=== PATIENT | female | born 2005 | race Caucasian/White ===

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

== ENCOUNTER 2025-01-23 14:46 | Emergency (ER) | payer OTHER, SELFPAY ==
[2025-01-23 15:49] VITALS: BP 111/65; PULSE 86; RESP 16; TEMP 36.5; O2SAT 99; BMI 17.9
--- NOTE | 2025-01-23 15:49 | ED.GENADULT ---
HPI - General Adult General Chief complaint: Urogenital-Female Stated complaint: possible UTI, bleeding/spotting Time Seen by Provider: 01/23/25 18:01 Source: patient Mode of arrival: ambulatory Limitations: no limitations History of Present Illness ED Provider: Светлана Box NP HPI narrative: Patient is a 19-year-old female who presents emergency department for evaluation of dysuria, hematuria, abnormal vaginal discharge as well as vaginal spotting since Nexplanon insertion 2 months ago. Endorsing a history of BV with similar symptoms. Denies concern for sexually transmitted infections. No fevers or chills. No nausea/vomiting or abdominal pain Related Data Previous Rx's ?Medication ?Instructions ?Recorded cefuroxime axetil 250 mg tablet 250 mg PO BID 7 days #14 tabs 11/27/24 metronidazole 500 mg tablet 500 mg PO BID 7 days #14 tabs 11/27/24 phenazopyridine 200 mg tablet 200 mg PO TID PRN pain 6 doses #6 12/10/24 (Pyridium) tabs sulfamethoxazole 800 1 tab PO Q12H #14 tabs 12/10/24 mg-trimethoprim 160 mg tablet (Bactrim DS) cefuroxime axetil 250 mg tablet 250 mg PO BID #14 tabs 01/23/25 Allergies Allergy/AdvReac Type Severity Reaction Status Date / Time No Known Allergies Allergy Verified 01/23/25 15:51 Review of Systems Review of Systems: Yes all other systems are reviewed and are negative [facility] Past Medical History Attestation statement: The following information was validated with the patient. Source: old records reviewed Social History Social History Advance Directives: No Advance Directives Information Provided: No Physical Exam ED Vital Signs: Vital Signs - 24 hr 01/23/25 15:49 Temperature 97.7 F Pulse Rate 86 Respiratory Rate 16 Blood Pressure 111/65 Pulse Oximetry 99 Oxygen Delivery Method Room Air BMI result Body Mass Index 17.9 Appearance: Alert.?Oriented to person, place and time. No acute distress.?Normal affect. CVS: Heart sounds normal. Normal heart rate and rhythm.? Pulses normal.?? Respiratory: No respiratory distress.? Lung sounds clear to auscultation bilaterally?? Abdomen: Soft and non-tender. Normoactive bowel sounds. Skin: Skin warm and dry.? Normal skin color.? Extremities: No lower extremity edema.? Neuro: Moves all extremities spontaneously. Sensation intact bilaterally. Ambulates with normal steady gait. Course Course Course Narrative: This is a rapid medical exam performed by Myles Borjas NP: Additional HPI, ROS, PE not included below will be deferred to primary provider. Patient is a 19-year-old female with Nexplanon implant placed 3-4 mos ago presenting with dysuria, hematuria, foul smelling vaginal discharge, vaginal bleeding/spotting x 2 mos. Reports hx of BV, feels some symptoms are similar. Plan: UA, labs Reevaluation(s) Reevaluation #1: Patient left the ED without completing treatment, nursing advised patient had walked out of the department. Sent prescription for cefuroxime to pharmacy. Attempted to reach by phone, went immediately to voicemail, voicemail not set up to leave message unfortunately. Medical Decision Making Medical Decision Making [facility] Narrative: Patient is a 19-year-old female who presents emergency department for evaluation of dysuria hematuria vaginal spotting as per HPI. Without signs of systemic toxicity afebrile no tachycardia. Benign abdominal examination. Obtaining serum labs in addition to urinalysis, hCG, BV panel/STI screen. Differential Diagnosis Differential Diagnoses: The differential diagnosis associated with the presentation includes (UTI, , pressure vaginosis, ultimately candidiasis, STI, nephrolithiasis) Lab Data [facility] Lab Attestation statement: I reviewed the patient's lab results. CBC is without leukocytosis anemia or thrombocytopenia. No significant electrolyte derangement. No VIOLETA. LFTs unremarkable. HCG negative. Urinalysis positive for UTI 01/23/25 16:35 01/23/25 16:35 Labs: Lab Results 01/23/25 Range/Units 16:35 WBC 5.3 (4.8-10.8) X10*3/uL RBC 4.66 (4.20-5.50) X10*6/uL Hgb 12.2 (12.0-16.0) g/dl Hct 38.6 (37.0-47.0) % MCV 82.8 (80.0-98.0) fL MCH 26.2 L (27.0-33.0) pg MCHC 31.6 (31.0-35.0) g/dl RDW 12.5 (11.0-16.0) % Plt Count 250 (160-400) X10*3/uL MPV 11.5 (9.4-12.3) fL Immature Gran % (Auto) 0.4 (0.0-0.4) % Neut % (Auto) 62.1 (45-73) % Lymph % (Auto) 27.8 (20-40) % [place] % (Auto) 7.8 (2-11) % Eos % (Auto) 1.1 (0-4) % Baso % (Auto) 0.8 (0-2) % Lymph # (Auto) 1.5 (1.2-4.9) X10*3/uL [place] # (Auto) 0.4 (0.1-1.2) X10*3/uL Eos # (Auto) 0.1 (0.0-0.4) X10*3/uL Baso # (Auto) 0.0 (0.0-0.2) X10*3/uL Abs Immat Gran (auto) 0.02 (0.00-0.03) X10*3/uL Absolute Neuts (auto) 3.3 (2.0-8.3) x10*3/uL Absolute Nucleated RBC 0.000 (0.0-0.012) X10*3/uL Nucleated RBC % (auto) 0.0 (0.0-0.2) /100WBC Sodium 141 (135-145) mmol/L Potassium 3.6 D (3.3-5.1) mmol/L Chloride 110 H (96-108) mmol/L Carbon Dioxide 22 (22-29) mmol/L Anion Gap 13 (12-20) BUN 9 (9-16) mg/dL Creatinine 0.65 (0.5-1.4) mg/dL Estim Creat Clear Calc 97.5 Estimated GFR > 60 Random Glucose 79 (60-115) mg/dL Calcium 9.1 (8.4-10.2) mg/dL Total Bilirubin 0.5 (0.0-1.0) mg/dL AST 18 (5-31) U/L ALT 9 (0-31) U/L Alkaline Phosphatase 46 (39-117) U/L Total Protein 7.7 (6.5-8.0) g/dL Albumin 5.0 (3.5-5.0) g/dL Beta HCG, Quant < 2 mIU/mL Urine Color Yellow Urine Appearance Hazy Urine pH 7.0 (5.0-9.0) Ur Specific [place] 1.015 (1.005-1.025) Urine Protein 30 (1+) H (Neg-Trace) mg/dL Urine Glucose (UA) Negative (Negative) mg/dL Urine Ketones Negative (Negative) mg/dL Urine Blood Trace (Negative) Urine Nitrite Negative (Negative) Ur Leukocyte Esterase Moderate (2+) H (Negative) Urine RBC 6-10 H (0-2) /HPF Urine WBC >50 H (0-5) /HPF Ur Squamous Epith Cells 11-20 (0-2) /HPF Urine Bacteria 4+ (None Seen) Hyaline Casts 3-5 (0-2) /LPF External Record Review External record reviewed: Outpatient record Prescription Management I considered prescription management with: Antibiotic Discharge Plan Discharge Clinical Impression: Urinary tract infection Patient Disposition: Left W/O Completing Treatment Prescriptions: New cefuroxime axetil 250 mg tablet 250 mg PO BID Qty: 14 0RF No Action cefuroxime axetil 250 mg tablet 250 mg PO BID 7 Days Qty: 14 0RF metronidazole 500 mg tablet 500 mg PO BID 7 Days Qty: 14 0RF sulfamethoxazole-trimethoprim [Bactrim DS] 800-160 mg tablet 1 tab PO Q12H Qty: 14 0RF phenazopyridine [Pyridium] 200 mg tablet 200 mg PO TID PRN (Reason: pain) Qty: 6 0RF Discharge Date/Time: 01/23/25 18:48
[2025-01-23 16:52] LABS: MANUAL DIFF FLAG NO
[2025-01-23 16:55] LABS: Basophils Percent Auto 0.8 % (0-2); Eosinophils Absolute Auto 0.1 X10*3/uL (0.0-0.4); Eosinophils Percent Auto 1.1 % (0-4); Hematocrit 38.6 % (37.0-47.0); Hemoglobin 12.2 g/dl (12.0-16.0); Imm Gran Abs Auto 0.02 X10*3/uL (0.00-0.03); Imm Gran Pct Auto 0.4 % (0.0-0.4); Lymphocytes Absolute Auto 1.5 X10*3/uL (1.2-4.9); Lymphocytes Percent Auto 27.8 % (20-40); Mean Corpuscular HGB Conc 31.6 g/dl (31.0-35.0); Mean Corpuscular Hemoglobin 26.2 pg (27.0-33.0); Mean Corpuscular Volume 82.8 fL (80.0-98.0); Mean Platelet Volume 11.5 fL (9.4-12.3); Monocytes Absolute Auto 0.4 X10*3/uL (0.1-1.2); Monocytes Percent Auto 7.8 % (2-11); Neutrophils Absolute Auto 3.3 x10*3/uL (2.0-8.3); Neutrophils Percent Auto 62.1 % (45-73); Platelet Count 250 X10*3/uL (160-400); Red Blood Count 4.66 X10*6/uL (4.20-5.50); Red Cell Distribution Width 12.5 % (11.0-16.0); White Blood Count 5.3 X10*3/uL (4.8-10.8)
[2025-01-23 16:56] LABS: Color Urine Yellow; Glucose Urine UA Negative (Negative); Leukocyte Esterase Urine Moderate (2+) (Negative); Nitrite Urine Negative (Negative); Specific Gravity - Urine 1.015 (1.005-1.025); UMIC TRIGGER UACC YES; Urine Blood Trace (Negative); Urine Ketones Negative (Negative); Urine Protein 30 (1+) mg/dL (Neg-Trace)
[2025-01-23 16:59] LABS: Appearance Urine Hazy
[2025-01-23 17:05] LABS: Bacteria Urine 4+ (None Seen); UACC Culture Trigger YES; WBC Urine >50 /HPF (0-5)
[2025-01-23 17:19] LABS: Alanine Aminotransferase 9 U/L (0-31); Alkaline Phosphatase 46 U/L (39-117); Anion Gap 13 (12-20); Aspartate Amino Transferase 18 U/L (5-31); Bilirubin Total 0.5 mg/dL (0.0-1.0); Blood Urea Nitrogen 9 mg/dL (9-16); Calcium 9.1 mg/dL (8.4-10.2); Carbon Dioxide 22 mmol/L (22-29); Chloride 110 mmol/L (96-108); Creatinine Clr Calc Pharmacy 97.5; Estimated Glomerular Filt Rate > 60; Glucose Random 79 mg/dL (60-115); Potassium 3.6 mmol/L (3.3-5.1); Sodium 141 mmol/L (135-145); Total Protein 7.7 g/dL (6.5-8.0)
[2025-01-23 17:23] LABS: HCG Quantitative < 2 mIU/mL
--- OUTSIDE RECORDS SUMMARY | 2025-01-23 18:54 | XMS_ITS | Clinical Summary ---
Author Organization [employer] Address [address] [place] [address] Care Team Providers Care Mortgage Specialist Name Role Phone Unavailable Primary Care Provider Unavailabl e Allergies No known active allergies Medications Sodium Fluoride 1.1 % cream [place] with a pea size amount of toothpaste morning and bedtime. Floss between teeth. Do not rinse. Spit out excess. 56 g 10 Active Social History Tobacco Use Types Packs/Day [...] 2005 HIV Screening 2005 SDOH Screening 2005 Disability Screening 2005 MMR Vaccines (1 of 1 - Standard series) 2006 Alcohol/Substance Use Screening 2017 Tobacco Screening 2017 Varicella Vaccines (1 of 2 - 13+ 2-dose series) 2018 Family Planning (PISQ) 2020 HPV Vaccines (1 - 3-dose series) 2020 Meningococcal B Vaccine (1 o f 2 - Standard) 2021 Fluoride Varnish 07/02/2023 12/31/2022, 06/10/2022, 12/18/2018 Dental Oral Exam 2023 12/31/2022, 06/10/2022, 12/18/2018 Dental Prophylaxis 2023 12/31/2022, 06/10/2022, 12/18/2018 Hepatitis C Screening 2023 Dental X-Ray: Bitewings 01/02/2024 01/01/20 23, 06/10/2022, 12/18/2018 COVID-19 Vaccine (1 - 2023-2 5 season) 2024 DTaP/Tdap/Td Vaccines (1 - Tdap) 2024 Hepatitis B Vaccines (1 of 3 - 19+ 3-dose series) 2024 Influenza Vaccine (Season Ended) 2025 Dental X-Ray: Full Mouth 01/01/2026 023, 12/18/2018 [...] Years) and At-Risk Patients (6 to 49) Years Aged Out No longer eligible b ased [...] Most Recently Relevant to Health Maintenance Insurance [facility] MEDICAID STAND CHILD
== END 2025-01-23 18:48 | disposition left against medical advice (07) ==
PROVIDERS: Registered Nurse Emergency; Emergency Provider Internal Medicine
DX: N39.0 Urinary tract infection, site not specified (principal); N89.8 Other specified noninflammatory disorders of vagina; R30.0 Dysuria; R31.9 Hematuria, unspecified; Z79.899 Other long term (current) drug therapy
CPT/HCPCS: 36415; 80053; 81001; 84702; 85025; 87086; 87088; 87186; 99282; 99283

== ENCOUNTER 2025-02-11 14:58 | Emergency (ER) | payer OTHER, SELFPAY ==
[2025-02-11 15:37] VITALS: BP 119/59; PULSE 83; RESP 16; TEMP 36.4; O2SAT 99; BMI 17.2
--- NOTE | 2025-02-11 15:54 | ED_ITS ---
HPI - Female Genitourinary General Chief complaint: Urogenital-Female Stated complaint: vaginal bleeding orange Time Seen by Provider: 02/11/25 19:11 Source: patient Mode of arrival: ambulatory Limitations: no limitations History of Present Illness ED Provider: Светлана Box NP HPI Narrative: Patient is a 19-year-old female who presents emergency department for evaluation. She has been experiencing recurrent urinary tract infection since September of this year. She was most recently in the in the emergency department 01/23/2025 she ultimately left without completing treatment. A prescription for cefuroxime was sent to the pharmacy for a 7 day course. However, there are multiple attempts to call the patient as her urine culture had grown Staph saprophyticus resistant to penicillins, multiple attempts were performed to call the patient and change her to Macrobid. On 01/31/2025 prescription for Macrobid was sent to the pharmacy. She states that she never picked up this prescription. 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 She states that the only reason she actually returned today is because her urine was orange in color and she was not aware that the Pyridium could change her urine to this color. She has been experiencing vaginal discomfort without any overt discharge, and spotting which has been ongoing for the past 2 3 months since her Nexplanon insertion. This is not increased or changed. She denies concern for sexually transmitted infections. Denies fevers, chills, nausea, vomiting, abdominal pain, back pain. Related Data Previous Rx's ?Medication ?Instructions ?Recorded cefuroxime axetil 250 mg tablet 250 mg PO BID 7 days # 14 tabs 11/27/24 metronidazole 500 mg tablet 500 mg PO BID 7 days #14 t abs 11/27/24 phenazopyridine 200 mg tablet 200 mg PO TID PRN pain 6 doses #6 12/10/24 (Pyridium) tabs sulfamethoxazole 800 1 tab PO Q12H #14 tabs 12/10 mg-trimethoprim 160 mg tablet (Bactrim DS) cefuroxime axetil 250 mg tablet 250 mg PO BID #14 tabs 06/25/25 nitrofurantoin macrocrystal 100 mg 100 mg PO BID 5 day s #10 caps 01/31/25 capsule nitrofurantoin 100 mg PO Q12H 5 days #10 ca ps 02/11/25 monohydrate/macrocrystals 100 mg capsule (Macrobid) Allergies Allergy/AdvReac Type Severity Reaction Status Date / Time No Known Allergies Allergy Verified 02/11/25 15:40 Review of Systems 2 Review of Systems: Yes all other systems are reviewed and are negative [facility] Past Medical History Attestation statement: The following information was validated with the patient. Source: old records reviewed Social History Social History Smoked in Last 30 Days: No Use of substances other than those prescribed or required for medical reasons: No Advance Directives: No Do you have a plan to hurt others: No Plan Physical Exam 2 Vital Signs: Vital Signs: Last Vital Signs Temp 98.5 F 02/11/25 20:29 Pulse 78 02/11/25 20:29 Resp 18 02/11/25 20:29 BP 100/69 02/11/25 20:29 Pulse Ox 99 02/11/25 20:29 O2 Del Method Room Air 02/11/25 20:29 BMI result Body Mass Index 17.2 Appearance: Alert.?Oriented to person, place and time. No acute distress.?Normal affect. Eyes: Pupils equal, round and reactive to light.? ENT: Pharynx normal.?? Neck: Normal inspection.? Neck supple.?? CVS: Heart sounds normal. Normal heart rate and rhythm.? Pulses normal.?? Respiratory: No respiratory distress.? Lung sounds clear to auscultation bilaterally?? Abdomen: Soft and non-tender. Normoactive bowel sounds. No CVAT. Skin: Skin warm and dry.? Normal skin color.? ? Extremities: No lower extremity edema.? Neuro: Moves all extremities spontaneously. Sensation intact bilaterally. Ambulates with normal steady gait. Course Course Course Narrative: 02/11/25 [id number] JANIYA Escobar This is a Rapid Medical Examination (RME) performed by Milan Sheldon PA-C in triage. Full HPI, ROS, assessment and treatment plan per primary provider in the Main ED. Hx: 19 yo F here for eval of discolored (orange) urination. states she's been taking pyridium, taking abx as prescribed for UTI. reports vaginal discomfort and spotting. Plan: labs, UA Medical Decision Making Medical Decision Making [facility] Narrative: Patient is a 19-year-old female who presents emergency department for evaluation of recurrent urinary tract infections, urinalysis today consistent with urinary tract infection, however as per HPI she has not been taking the appropriate antibiotic for her most recent urine culture, I have discussed with her that she should discontinue cefuroxime at this time, the only antibiotic that she should be taking will be the Macrobid which will send a 5 day course of the pharmacy. She believes that the pharmacy likely ?returned? the previous prescription in his adamant that she did not pick this up. I have expressed for me that she should only take 5 days of Macrobid and complete the entire course without skipping any doses. Bacterial vaginosis panel in addition to testing for chlamydia and gonorrhea has been sent but will not result today. Serum labs were obtained prior to my assumption of care CBC is without leukocytosis anemia or thrombocytopenia. No significant electrolyte derangement. No VIOLETA. No CVAT to suggest renal colic secondary to calculi or pyelonephritis. HCG is negative. No unilateral abdominal pain or tenderness on examination, denies concern for sexually transmitted infection, denies history of ovarian cysts lower suspicion for tubo-ovarian abscess/ PID, ovarian torsion, ruptured ovarian cyst. Differential Diagnosis Differential Diagnoses: The differential diagnosis associated with the presentation includes (See narrative above) Lab Data [facility] Lab Attestation statement: I reviewed the patient's lab results. (See narrative above) 02/11/25 17:02 02/11/25 17:02 Labs: Lab Results 02/11/25 02/11/25 02/11/25 Range/Units 17:02 19:40 20:01 WBC 5.8 (4.8-10.8) X10*3/uL RBC 4.61 (4.20-5.50) X10*6/uL Hgb 12.0 (12.0-16.0) g/dl Hct 37.3 (37.0-47.0) % MCV 80.9 (80.0-98.0) fL MCH 26.0 L (27.0-33.0) pg MCHC 32.2 (31.0-35.0) g/dl RDW 12.4 (11.0-16.0) % Plt Count 272 (160-400) X10*3/uL MPV 11.4 (9.4-12.3) fL Immature Gran % (Auto) 0.5 H (0.0-0.4) % Neut % (Auto) 66.3 (45-73) % Lymph % (Auto) 23.3 (20-40) % [place] % (Auto) 7.0 (2-11) % Eos % (Auto) 1.9 (0-4) % Baso % (Auto) 1.0 (0-2) % Lymph # (Auto) 1.4 (1.2-4.9) X10*3/uL [place] # (Auto) 0.4 (0.1-1.2) X10*3/uL Eos # (Auto) 0.1 (0.0-0.4) X10*3/uL Baso # (Auto) 0.1 (0.0-0.2) X10*3/uL Abs Immat Gran (auto) 0.03 (0.00-0.03) X10*3/uL Absolute Neuts (auto) 3.9 (2.0-8.3) x10*3/uL Absolute Nucleated RBC 0.000 (0.0-0.012) X10*3/uL Nucleated RBC % (auto) 0.0 (0.0-0.2) /100WBC Sodium 143 (135-145) mmol/L Potassium 4.5 D (3.3-5.1) mmol/L Chloride 112 H (96-108) mmol/L Carbon Dioxide 24 (22-29) mmol/L Anion Gap 12 (12-20) BUN 6 L (9-16) mg/dL Creatinine 0.63 (0.5-1.4) mg/dL Estim Creat Clear Calc 102.8 Estimated GFR > 60 Random Glucose 97 (60-115) mg/dL Calcium 8.9 (8.4-10.2) mg/dL Total Bilirubin 0.3 (0.0-1.0) mg/dL AST 16 (5-31) U/L ALT 11 (0-31) U/L Alkaline Phosphatase 47 (39-117) U/L Total Protein 7.1 (6.5-8.0) g/dL Albumin 4.6 (3.5-5.0) g/dL Urine Color Dark Yellow Urine Appearance Clear Urine pH 6.5 (5.0-9.0) Ur Specific [place] 1.020 (1.005-1.025) Urine Protein 30 (1+) H (Neg-Trace) mg/dL Urine Glucose (UA) Negative (Negative) mg/dL Urine Ketones Negative (Negative) mg/dL Urine Blood Large (3+) H (Negative) Urine Nitrite Positive H (Negative) Ur Leukocyte Esterase Moderate (2+) H (Negative) Urine RBC >20 H (0-2) /HPF Urine WBC 21-50 H (0-5) /HPF Ur Squamous Epith Cells 0-2 (0-2) /HPF Urine Bacteria None Seen (None Seen) Hyaline Casts 0-2 (0-2) /LPF Urine Test NEGATIVE (NEGATIVE) Chlam trachomat DNA PCR NOT DETECTED (Not Detect.) N.gonorrhoeae DNA (PCR) NOT DETECTED (Not Detect.) T. vaginalis (PCR) NOT DETECTED (Not Detect) Bact vaginosis (PCR) NEGATIVE (Negative) C. krusei/glabrata (PCR) NOT DETECTED (Not Detect) Pooja group (PCR) NOT DETECTED (Not Detect) External Record Review External record reviewed: Outpatient record Prescription Management I considered prescription management with: Antibiotic Discharge Plan Discharge Clinical Impression: Urinary tract infection Patient Disposition: Home, Self-Care Instructions: Urinary Tract Infection in Women (ED) Additional Instructions: Prescription for an appropriate antibiotic to treat the urinary tract infection that you currently have has been sent to the pharmacy; Macrobid. As discussed, a previous prescription was sent on 01/31/2025. It is important that you only take 5 days of Macrobid as prescribed. Do not skip any doses or stop taking early even if you begin to feel better. Additional testing for bacterial vaginosis panel as well as chlamydia/gonorrhea screening has been sent to the lab but will not result today, if there was any positive result you will receive a call from the emergency department to discuss these findings. It is very important to use a back-up form of control, such as barrier condoms/abstinence, while on antibiotics and for one week after as they may be ineffective in preventing while on the antibiotics. While taking antibiotics, please include probiotics that can be found over the counter or yogurt in your diet. If symptoms of a yeast infection or diarrhea occur, please seek evaluation. Be certain that you are staying well hydrated. Drink plenty of fluids. Refrain from any excessive vaginal cleansing or douching. You are currently sexually active you should urinate after having intercourse. Be certain that you were always cleaning from front to back. If you continue to have issues with recurrent urinary tract infections you need to speak closely with your primary care provider she will follow up, they may consider additional referral to Urology. Prescriptions: New nitrofurantoin monohyd/m-cryst [Macrobid] 100 mg capsule 100 mg PO Q12H 5 Days Qty: 10 0RF Rx Instructions: must administer with a meal/food No Action cefuroxime axetil 250 mg tablet 250 mg PO BID Qty: 14 0RF nitrofurantoin macrocrystal 100 mg capsule 100 mg PO BID 5 Days Qty: 10 0RF Rx Instructions: must administer with a meal/food cefuroxime axetil 250 mg tablet 250 mg PO BID 7 Days Qty: 14 0RF metronidazole 500 mg tablet 500 mg PO BID 7 Days Qty: 14 0RF sulfamethoxazole-trimethoprim [Bactrim DS] 800-160 mg tablet 1 tab PO Q12H Qty: 14 0RF phenazopyridine [Pyridium] 200 mg tablet 200 mg PO TID PRN (Reason: pain) Qty: 6 0RF Referrals: Physician,Unknown J [Primary Care Provider, Medical] Stand Alone Forms: Work/School Release Interventions: ED Discharge Assessment Last Done: 02/11/25 20:29 Discharge Date/Time: 02/11/25 20:30 Print Language: Estonian
[2025-02-11 17:11] LABS: MANUAL DIFF FLAG NO
[2025-02-11 17:22] LABS: Hematocrit 37.3 % (37.0-47.0); Hemoglobin 12.0 g/dl (12.0-16.0); Imm Gran Abs Auto 0.03 X10*3/uL (0.00-0.03); Imm Gran Pct Auto 0.5 % (0.0-0.4); Lymphocytes Absolute Auto 1.4 X10*3/uL (1.2-4.9); Mean Corpuscular HGB Conc 32.2 g/dl (31.0-35.0); Mean Corpuscular Hemoglobin 26.0 pg (27.0-33.0); Mean Corpuscular Volume 80.9 fL (80.0-98.0); NRBC Abs Auto 0.000 X10*3/uL (0.0-0.012); NRBC Pct Auto 0.0 /100WBC (0.0-0.2); Platelet Count 272 X10*3/uL (160-400); Red Blood Count 4.61 X10*6/uL (4.20-5.50); White Blood Count 5.8 X10*3/uL (4.8-10.8)
[2025-02-11 17:27] LABS: Alanine Aminotransferase 11 U/L (0-31); Albumin Level 4.6 g/dL (3.5-5.0); Alkaline Phosphatase 47 U/L (39-117); Anion Gap 12 (12-20); Aspartate Amino Transferase 16 U/L (5-31); Blood Urea Nitrogen 6 mg/dL (9-16); Calcium 8.9 mg/dL (8.4-10.2); Carbon Dioxide 24 mmol/L (22-29); Chloride 112 mmol/L (96-108); Creatinine Clr Calc Pharmacy 102.8; Estimated Glomerular Filt Rate > 60; Potassium 4.5 mmol/L (3.3-5.1); Sodium 143 mmol/L (135-145); Total Protein 7.1 g/dL (6.5-8.0)
--- OUTSIDE RECORDS SUMMARY | 2025-02-11 19:08 | XMS_ITS | Clinical Summary ---
Author Organization [employer] Address [address] [place] [address] Care Team Providers Care Commercial Attache Name Role Phone Unavailable Primary Care Provider Unavailabl e Allergies No known active allergies Medications Sodium Fluoride 1.1 % cream [place] with a pea size amount of toothpaste [...] - 19+ 3-dose series) 2024 Influenza Vaccine (#1) 2025 Dental X-Ray: Full Mouth 01/01/2026 023, [...] Most Recently Relevant to Health Maintenance Insurance [facility] MEDICAID STAND CHILD
[2025-02-11 19:18] VITALS: BP 97/62; PULSE 87; RESP 14; TEMP 36.8; O2SAT 98
--- NOTE | 2025-02-11 19:43 | PC.NURSE ---
Pt a&ox4, no signs of distress. Pt reports 2/10 suprapubic pain UA collected and sent Plan of care ongoing.
[2025-02-11 19:47] LABS: Appearance Urine Clear; Glucose Urine UA Negative (Negative); PH 6.5 (5.0-9.0); Specific Gravity - Urine 1.020 (1.005-1.025); UMIC TRIGGER UACC YES
[2025-02-11 19:55] LABS: UACC Culture Trigger YES
[2025-02-11 19:57] LABS: UPreg QC Valid YES
[2025-02-11 20:28] VITALS: BP 100/69; PULSE 78; RESP 18; TEMP 36.9; O2SAT 99
[2025-02-11 20:29] VITALS: BP 100/69; PULSE 78; RESP 18; TEMP 36.9; O2SAT 99
[2025-02-12 10:06] LABS: Bacterial Vaginosis PCR NEGATIVE (Negative); Candida Group PCR NOT DETECTED (Not Detect); Candida glab krusei PCR NOT DETECTED (Not Detect); Trichomonas vaginalis PCR NOT DETECTED (Not Detect)
[2025-02-12 10:24] LABS: CT PCR NOT DETECTED (Not Detect.); NG PCR NOT DETECTED (Not Detect.)
== END 2025-02-11 20:30 | disposition home or self-care (01) ==
PROVIDERS: Nurse Practitioner Family; Physician Assistant Medical; Emergency Provider Emergency Medicine
DX: N39.0 Urinary tract infection, site not specified (principal)
CPT/HCPCS: 36415; 80053; 81001; 81025; 81515; 85025; 87086; 87491; 87591; 99283; 99284